=== PATIENT | female | born 1970 | race Caucasian/White ===

== ENCOUNTER 2018-01-12 14:01 | Emergency (ER) | payer SELFPAY ==
[2018-01-12] MEDS ORDERED: ALPRAZolam 0.5 MG Tab PO ONE (15:44)
--- NOTE | 2018-01-12 15:46 | EDM.PDOC ---
ED HPI GENERAL MEDICAL PROBLEM - General Chief Complaint: Behavioral/Psych Stated Complaint: ANXIETY Time Seen by Provider: 01/12/18 15:38 - History of Present Illness INITIAL COMMENTS - FREE TEXT/NARRATIVE: HISTORY AND PHYSICAL: History of present illness: Patient's 47-year-old female with history of acute anxiety presents with a concern of anxiety patient states she uses Xanax but his traveled recently from [place] and has not been able to secure a prescription. I discussed with her the importance of these types of medications and close monitoring she understands and agrees she'll be given appropriate referrals as we discussed Review of systems: As per history of present illness and below otherwise all systems reviewed and negative. Past medical history: As per history of present illness and as reviewed below otherwise noncontributory. Surgical history: As per history of present illness and as reviewed below otherwise noncontributory. Social history: No reported history of drug or alcohol abuse. Family history: As per history of present illness and as reviewed below otherwise noncontributory. Physical exam: HEENT: Atraumatic, normocephalic, pupils reactive, negative for conjunctival pallor or scleral icterus, mucous membranes moist, throat clear, neck supple, nontender, trachea midline. Lungs: Clear to auscultation, breath sounds equal bilaterally, chest nontender. Heart: S1S2, regular, negative for clicks, rubs, or JVD. Abdomen: Soft, nondistended, nontender. Negative for masses or hepatosplenomegaly. Negative for costovertebral tenderness. Pelvis: Stable nontender. Genitourinary: Deferred. Rectal: Deferred. Extremities: Atraumatic, negative for cords or calf pain. Neurovascular unremarkable. Neuro: Awake, alert, anxious, oriented. Cranial nerves II through XII unremarkable. Cerebellum unremarkable. Motor and sensory unremarkable throughout. Exam nonfocal. Diagnostics: None Therapeutics: Xanax 0.5 by mouth Impression: #1 anxiety Definitive disposition and diagnosis as appropriate pending reevaluation and review of above. Chest Pain Score (Numeric/FACES): 6 - Related Data Allergies Allergy/AdvReac Type Severity Reaction Status Date / Time codeine Allergy Hives Verified 01/12/18 14:28 Home Meds: Home Meds ALPRAZolam [Xanax] 1 mg PO QID PRN 01/12/18 [History] Sertraline [Zoloft] 1 tab PO DAILY 01/12/18 [History] Zolpidem Tartrate [Ambien] 10 mg PO BEDTIME 01/12/18 [History] Past Medical History Psychiatric History: Reports: Anxiety, Panic Attack Social & Family History - Family History Family Medical History: Noncontributory - Tobacco Use Smoking Status *Q: Never Smoker Second Hand Smoke Exposure: No - Caffeine Use Caffeine Use: Reports: None - Recreational Drug Use Recreational Drug Use: No ED ROS GENERAL - Review of Systems Review Of Systems: ROS reveals no pertinent complaints other than HPI. ED EXAM, GENERAL - Physical Exam Exam: See Below (See dictation) Course - Vital Signs Last Recorded V/S: Last Vital Signs Temp 36.0 C 01/12/18 14:31 Pulse 118 H 01/12/18 14:31 Resp 28 H 01/12/18 14:31 BP 134/80 01/12/18 14:31 Pulse Ox 100 01/12/18 14:31 - Orders/Labs/Meds Orders: Active Orders 24 hr Category Date Time Status ALPRAZolam [Xanax] Med 01/12/18 15:44 Once 0.5 mg PO NOW ONE Departure - Departure Time of Disposition: 15:45 Disposition: Home, Self-Care 01 Condition: Good Clinical Impression: Anxiety - Discharge Information Referrals: PCP,None [Primary Care Provider] - Additional Instructions: The following information is given to patients seen in the emergency department who are being discharged to home. This information is to outline your options for follow-up care. We provide all patients seen in our emergency department with a follow-up referral. The need for follow-up, as well as the timing and circumstances, are variable depending upon the specifics of your emergency department visit. If you don't have a primary care physician on staff, we will provide you with a referral. We always advise you to contact your personal physician following an emergency department visit to inform them of the circumstance of the visit and for follow-up with them and/or the need for any referrals to a consulting specialist. The emergency department will also refer you to a specialist when appropriate. This referral assures that you have the opportunity for followup care with a specialist. All of these measure are taken in an effort to provide you with optimal care, which includes your followup. Under all circumstances we always encourage you to contact your private physician who remains a resource for coordinating your care. When calling for followup care, please make the office aware that this follow-up is from your recent emergency room visit. If for any reason you are refused follow-up, please contact the [facility] emergency department at and asked to speak to the emergency department charge nurse. [facility] [address] [place] [id number] Follow-up primary medical doctor or walk-in clinic or medical clinic above as needed as discussed return as needed as discussed - My Orders Last 24 Hours: My Active Orders 01/12/18 15:44 ALPRAZolam [Xanax] 0.5 mg PO NOW ONE - Assessment/Plan Last 24 Hours: My Active Orders 01/12/18 15:44 ALPRAZolam [Xanax] 0.5 mg PO NOW ONE
== END 2018-01-12 15:58 | disposition home or self-care (01) ==
LOC: MW.ED 14:01
DX: F41.9 Anxiety disorder, unspecified (principal); Z88.5 Allergy status to narcotic agent; Z79.899 Other long term (current) drug therapy
CPT/HCPCS: 99283; A9270